=== PATIENT | male | born 1945 | race Caucasian/White ===

== ENCOUNTER 2019-01-06 16:45 | Inpatient (IN) | payer MEDICARE, OTHER ==
[~2019-01-06] VITALS: Ht 177.8 cm; Wt 117.5 kg
[~2019-01-06 16:45] MED LIST: ACET325T9 PO; ALBU0.63 NEB; ALBU2.5V8 IH; ASPI-482 PO; ATOR40TA PO; BUDE10.2 IH; CALC0.2530 PO; CALC500T PO; CAPS42.52 TP; CARB15DR3 LEFTEYE; CARV6.2541 PO; CETI10TA16 PO; CHOL2000 PO; CITA40TA12 PO; DOCU-109 PO; FERR325T14 PO; FLUT16SP2 NS; FLUT50DI IH; FOLI1TAB16 PO; FURO40TA4 PO; LEVO50TA5 PO; MIRT45TA58 PO; OXYC1TAB15 PO; OXYM30MI NS; POTA20TA12 PO; PRED20TA PO; RANI150T2 PO; RIVA10TA PO; TIOT18CA IH; [UNRECOGNIZED DRUG - CODE] PO
--- NOTE | 2019-01-06 16:58 | PHYS DOC ---
Past History Past Medical History: Anxiety, CHF, COPD, Depression, Diabetes, GERD, High Cholesterol, Hypothyroid Alcohol Use: None Drug Use: None Adult General Chief Complaint Chief Complaint: SHORTNESS OF BREATH [facility] HPI Patient is a 73-year-old male presents complaining of shortness of breath that has been getting worse over the past several days to a week. Became much worse while he was in physical therapy/rehabilitation today. Notes that bilateral lower extremities are swelling compared with his usual baseline. Denies any chest pain. Notes a fast heartbeat and some palpitations. This is also been present for the past week. No nausea or vomiting. No diaphoresis. No worsening cough and his usual baseline. No fever. Patient is on home oxygen therapy at 3 L chronically For COPD.[] Review of Systems Review of Systems Constitutional: Denies fever or chills [] Eyes: Denies change in visual acuity, redness, or eye pain [] HENT: Denies nasal congestion or sore throat [] Respiratory: See history of present illness[] Cardiovascular: No additional information not addressed in HPI [] GI: Denies abdominal pain, nausea, vomiting, bloody stools or diarrhea [] : Denies dysuria or hematuria [] Musculoskeletal: Denies back pain or joint pain [] Integument: Denies rash or skin lesions [] Neurologic: Denies headache, focal weakness or sensory changes [] Endocrine: Denies polyuria or polydipsia [] All other systems were reviewed and found to be within normal limits, except as documented in this note. Allergies Allergies Allergies Coded Allergies Type Severity Reaction Last Updated Verified Penicillins Allergy Intermediate 09/07/14 Yes Physical Exam Physical Exam Constitutional: Well developed, well nourished, mild distress, non-toxic appearance. [] HENT: Normocephalic, atraumatic, bilateral external ears normal, oropharynx moist, no oral exudates, nose normal. [] Eyes: PERRLA, EOMI, conjunctiva normal, no discharge. [] Neck: Normal range of motion, no tenderness, supple, no stridor. [] Cardiovascular:Heart rate is tachycardic with a regular rhythm, no murmur [] Lungs & Thorax: Bilateral breath sounds are diminished[] Abdomen: Bowel sounds normal, soft, no tenderness, no masses, no pulsatile masses. [] Skin: Warm, dry, no erythema, no rash. [] Back: No tenderness, no CVA tenderness. [] Extremities: No tenderness, no cyanosis, no clubbing, ROM intact, 2-3+ pretibial edema. [] Neurologic: Alert and oriented X 3, normal motor function, normal sensory function, no focal deficits noted. [] Psychologic: Affect normal, judgement normal, mood normal. [] EKG EKG EKG shows an irregularly irregular rhythm at 161 bpm, normal axis, QTC of 384 ms , no ST elevations. Interpreted by me at 1708. When compared with EKG of 2013, atrial fibrillation has replaced sinus rhythm.[] Radiology/Procedures Radiology/Procedures PROCEDURE: PORTABLE CHEST 1V PORTABLE CHEST 1V Clinical indications: TACHYCARDIA, SHORT OF AIR COMPARISON: September 10, 2014. Findings: Bibasilar lung infiltrates or pulmonary edema are seen. Bilateral perihilar interstitial pulmonary edema or interstitial lung infiltrates are seen. Small bilateral pleural effusions are seen. No pneumothorax is evident. The heart size is enlarged but stable. Mediastinum is unremarkable. Old healed left rib cage fractures are seen. IMPRESSION: Bibasilar consolidative lung infiltrates and bilateral perihilar interstitial lung infiltrates with small bilateral pleural effusions. Given cardiomegaly, this most likely represents moderate CHF although certainly bilateral bronchitis and bilateral pneumonia is possible if there are clinical findings of such.[] Course & Med Decision Making Course & Med Decision Making Pertinent Labs and Imaging studies reviewed. (See chart for details) ED course: Patient arrived, was placed in bed from the EMS cot, and tolerated exam well. He was noted to be hypoxic on 4 L is cannula oxygen when in a supine position so he was sat up which improved his oxygenation. He was given breathing treatment which improved airflow. He was given diuretics due to concern for congestive heart failure. He was given a diltiazem bolus as well as continuous infusion which brought his heart rate down from the 160s to the 100s to 110s. Consultation was made with hospitalist service for admission. Medical decision making: Patient appears to have congestive heart failure with new onset atrial fibrillation with rapid ventricular response. Patient is on Eliquis which according to his medical record that came from the assisted care facility is for DVTs.[] Dragon Disclaimer Dragon Disclaimer This electronic medical record was generated, in whole or in part, using a voice recognition dictation system. Departure Departure: Impression: Primary Impression: CHF (congestive heart failure) Additional Impressions: Atrial fibrillation with RVR COPD (chronic obstructive pulmonary disease) Disposition: ADMITTED INPATIENT Admitting Physician: Tez Stinson Condition: IMPROVED Referrals: SHELLY MEYER DO (PCP) Problem Qualifiers Primary Impression: CHF (congestive heart failure) Heart failure type: unspecified Heart failure chronicity: unspecified Qualified Codes: I50.9 - Heart failure, unspecified Additional Impressions: COPD (chronic obstructive pulmonary disease) COPD type: unspecified COPD Qualified Codes: J44.9 - Chronic obstructive pulmonary disease, unspecified ANNALEE ARAUZ DO Jan 06, 2019 16:58
[2019-01-06] MEDS ORDERED: dilTIAZem 25 MG/5 ML VIAL IVP ONE (17:15)
--- NOTE | 2019-01-06 17:25 | EKG ---
[address] [address] Test Date: 2019-01-06 Test Time: 17:04:36 Pat Name: JIMY GUPTA Department: Room: Gender: M Box Inspector: [id number] : 1945 Requested By: ANNALEE RAAUZ Order Number: [id number] Reading MD: Tru Vidales Measurements Intervals [place] Rate: 161 P: AR: QRS: 3 QRSD: 92 T: -179 QT: 234 QTc: 384 Interpretive Statements ATRIAL FIBRILLATION WITH RVR QRS(T) CONTOUR ABNORMALITY CONSISTENT WITH INFERIOR INFARCT PROBABLY OLD ST & T ABNORMALITY, CONSIDER HIGH LATERAL ISCHEMIA OR LEFT VENTRICULAR STRAIN T ABNORMALITY IN LATERAL LEADS ABNORMAL ECG Electronically Signed On 01-11-2019 8:28:13 CDT by Tru Vidales
--- NOTE | 2019-01-06 17:26 | RAD ---
PORTABLE CHEST 1V Clinical indications: TACHYCARDIA, SHORT OF AIR COMPARISON: September 10, 2014. Findings: Bibasilar lung infiltrates or pulmonary edema are seen. Bilateral perihilar interstitial pulmonary edema or interstitial lung infiltrates are seen. Small bilateral pleural effusions are seen. No pneumothorax is evident. The heart size is enlarged but stable. Mediastinum is unremarkable. Old healed left rib cage fractures are seen. IMPRESSION: Bibasilar consolidative lung infiltrates and bilateral perihilar interstitial lung infiltrates with small bilateral pleural effusions. Given cardiomegaly, this most likely represents moderate CHF although certainly bilateral bronchitis and bilateral pneumonia is possible if there are clinical findings of such. Electronically signed by: Santiago Montejo MD (01/06/2019 5:23 PM) [id number]
[2019-01-06] MEDS ORDERED: ASPIRIN 81 MG TAB.CHEW PO ONE (17:30)
[2019-01-06] MEDS ORDERED: dilTIAZem VIAL 125 MG in IV DEXTROSE 5% 100 ML IV ONE (17:30)
[2019-01-06] MEDS ORDERED: IPRATRPIUM/ALBUTEROL 0.5/2.5MG 3 ML NEBU. NEB ONE (17:30)
[2019-01-06] MEDS ORDERED: FUROSEMIDE 40 MG/4 ML VIAL IVP ONE (17:30)
[2019-01-06 17:35] LABS: BASO % 0 % (0-3); EOS % 0 % (0-3); HEMATOCRIT 42.2 % (39.0-53.0); HEMOGLOBIN 13.4 g/dL (13.0-17.5); LYMPH # 0.2 x10^3/uL (1.0-4.8); LYMPH % 2 % (24-48); MEAN CORPUSCULAR HEMOGLOBIN 31 pg (25-35); MEAN CORPUSCULAR HGB CONC 32 g/dL (31-37); MEAN CORPUSCULAR VOLUME 98 fL (79-100); MONO # 0.2 x10^3/uL (0.0-1.1); MONO % 2 % (0-9); NEUT # 8.6 x10^3uL (1.8-7.7); NEUT % 96 % (31-73); PLATELET COUNT 139 x10^3/uL (140-400); RED BLOOD COUNT 4.31 x10^6/uL (4.30-5.70)
[2019-01-06] MEDS ORDERED: busPIRone 5 MG TABLET. PO ONE (17:45)
[2019-01-06 17:56] LABS: ALBUMIN 3.5 g/dL (3.4-5.0); ALBUMIN/GLOBULIN RATIO 1.3 (1.0-1.7); CALCIUM 8.2 mg/dL (8.5-10.1); CREATININE 2.9 mg/dL (0.7-1.3); GFR 21.3; MAGNESIUM 2.2 mg/dL (1.8-2.4); TOTAL BILIRUBIN 0.5 mg/dL (0.2-1.0); TOTAL PROTEIN 6.3 g/dL (6.4-8.2)
[2019-01-06] MEDS ORDERED: MORPHINE SULFATE 2 MG/ML DISP.SYRIN. IV PRN (18:30)
[2019-01-06] MEDS ORDERED: ONDANSETRON PF 4 MG/2 ML VIAL. IV PRN (18:30)
[2019-01-06] MEDS ORDERED: MORPHINE SULFATE 4 MG/ML DISP.SYRIN. IV PRN (18:33)
[2019-01-06 18:50] VITALS: BP 136/80
[2019-01-06 19:40] VITALS: BP 152/75
[2019-01-06 20:07] LABS: BACTERIA,URINE FEW /HPF (0-FEW); BILIRUBIN,URINE NEG (NEG); CLARITY,URINE CLEAR; COLOR,URINE YELLOW; GLUCOSE,URINE 250 mg/dL (NEG); NITRITE,URINE NEG (NEG); RBC,URINE 0 /HPF (0-2); SQUAMOUS EPITHELIAL CELL,UR FEW /LPF; UROBILINOGEN,URINE 0.2 mg/dL (0.2 mg/dL); WBC,URINE 0 /HPF (0-4)
[2019-01-06] MEDS ORDERED: SENN1TAB62 PO (20:19)
[2019-01-06 20:40] VITALS: BP 149/85
[2019-01-06] MEDS ORDERED: FURO20TA3 PO (20:52)
[2019-01-06] MEDS ORDERED: TRAZ-120 PO (20:52)
[2019-01-06] MEDS ORDERED: PANT40TA3 PO (20:52)
[2019-01-06] MEDS ORDERED: BUDE10.2 IH (20:52)
[2019-01-06] MEDS ORDERED: APIX2.5T PO (20:52)
[2019-01-06] MEDS ORDERED: POTA20TA4 PO (20:52)
[2019-01-06] MEDS ORDERED: DULO60CA6 PO (20:52)
[2019-01-06] MEDS ORDERED: MELA3TAB2 PO (20:52)
[2019-01-06] MEDS ORDERED: GLIP5TAB10 PO (20:52)
[2019-01-06] MEDS ORDERED: FLUT16SP21 NS (20:52)
[2019-01-06] MEDS ORDERED: NYST15PO9 TP (20:52)
[2019-01-06] MEDS ORDERED: ALBU2.5V5 NEB (20:52)
[2019-01-06] MEDS ORDERED: LACT1CAP2 PO (20:52)
[2019-01-06] MEDS ORDERED: BUSP10TA PO (20:52)
[2019-01-06] MEDS ORDERED: LEVO750T5 PO (20:52)
[2019-01-06 21:40] VITALS: BP 170/83
[2019-01-06] MEDS ORDERED: DEXTROSE 50% 25 GM / 50ML DISP.SYRIN. IV PRN ×2 (21:45)
[2019-01-06] MEDS: VANCOMYCIN PER PHARMACY MC PRN (22:33)
[2019-01-06 22:40] VITALS: BP 139/73
[2019-01-06] MEDS: busPIRone 10 MG TABLET. PO SCH (22:40)
[2019-01-06] MEDS: MELATONIN 3 MG TABLET PO SCH (22:40)
[2019-01-06] MEDS: APIXABAN 2.5 MG TABLET PO SCH (22:41)
[2019-01-06] MEDS: ATORVASTATIN CALCIUM 20 MG TABLET PO SCH (22:41)
[2019-01-06] MEDS: traZODone 50 MG TABLET. PO SCH (22:41)
[2019-01-06] MEDS: MEROPENEM 1 GM in IV NORMAL SALINE 100ML 100 ML IV SCH (22:42)
[2019-01-06] MEDS ORDERED: DIGOXIN IV 500 MCG/2 ML AMPUL. IV ONE (22:44)
[2019-01-06] MEDS ORDERED: VANCOMYCIN 2 GM in IV NORMAL SALINE 500ML 500 ML IV ONE (23:00)
[2019-01-06 23:40] VITALS: BP 109/79
[2019-01-07] VITALS (18 sets, daily range): BP systolic 107–161; BP diastolic 52–81
[2019-01-07] MEDS: dilTIAZem VIAL 125 MG in IV DEXTROSE 5% 100 ML IV PRN ×3 (00:24→22:14)
[2019-01-07] MEDS: ACETAMINOPHEN 500 MG TABLET PO PRN (01:07)
[2019-01-07] MEDS ORDERED: IPRATRPIUM/ALBUTEROL 0.5/2.5MG 3 ML NEBU. ONE (05:18)
[2019-01-07] MEDS: IPRATRPIUM/ALBUTEROL 0.5/2.5MG 3 ML NEBU. NEB SCH ×4 (05:22→20:06)
[2019-01-07] MEDS: LEVOTHYROXINE 50 MCG TABLET PO SCH (05:30)
[2019-01-07] MEDS: NYSTATIN TOPICAL POWDER 15GM BOTTLE. TP SCH ×3 (05:30→20:24)
[2019-01-07 07:42] LABS: BASO % 0 % (0-3); EOS # 0.1 x10^3/uL (0.0-0.7); EOS % 1 % (0-3); HEMATOCRIT 36.7 % (39.0-53.0); HEMOGLOBIN 11.8 g/dL (13.0-17.5); LYMPH # 0.7 x10^3/uL (1.0-4.8); LYMPH % 10 % (24-48); MEAN CORPUSCULAR HEMOGLOBIN 31 pg (25-35); MEAN CORPUSCULAR HGB CONC 32 g/dL (31-37); MEAN CORPUSCULAR VOLUME 96 fL (79-100); MONO # 0.5 x10^3/uL (0.0-1.1); MONO % 6 % (0-9); NEUT # 6.3 x10^3uL (1.8-7.7); NEUT % 83 % (31-73); PLATELET COUNT 112 x10^3/uL (140-400); RED CELL DISTRIBUTION WIDTH 14.2 % (11.5-14.5); WHITE BLOOD COUNT 7.6 x10^3/uL (4.0-11.0)
[2019-01-07] MEDS: glipiZIDE 5 MG TABLET PO SCH ×2 (07:55→16:44)
[2019-01-07 07:59] LABS: ALBUMIN 2.9 g/dL (3.4-5.0); ALBUMIN/GLOBULIN RATIO 1.1 (1.0-1.7); CALCIUM 7.8 mg/dL (8.5-10.1); CREATININE 2.5 mg/dL (0.7-1.3); GFR 25.3; POTASSIUM 4.3 mmol/L (3.5-5.1); TOTAL BILIRUBIN 0.6 mg/dL (0.2-1.0); TOTAL PROTEIN 5.5 g/dL (6.4-8.2)
[2019-01-07] MEDS: INSULIN LISPRO 300 UNITS/3 ML INSULN.PEN. SQ SCH ×3 (08:00→17:07)
[2019-01-07] MEDS ORDERED: IPRATRPIUM/ALBUTEROL 0.5/2.5MG 3 ML NEBU. NEB SCH (08:00)
[2019-01-07] MEDS: APIXABAN 2.5 MG TABLET PO SCH ×2 (08:04→20:23)
[2019-01-07] MEDS: DULoxetine HCL 60 MG CAPSULE.DR PO SCH (08:04)
[2019-01-07] MEDS: PANTOPRAZOLE 40 MG TABLET. PO SCH (08:05)
[2019-01-07] MEDS: LACTOBACILLUS RHAMNOSUS GG 1 CAPSULE. PO SCH ×2 (08:05→20:24)
[2019-01-07] MEDS: CHOLECALCIFEROL (VITAMIN D3) 1,000 UNIT TABLET PO SCH (08:05)
[2019-01-07] MEDS: FOLIC ACID 1 MG TABLET PO SCH (08:05)
[2019-01-07] MEDS: FLUTICASONE 50MCG/NASAL SPRAY 16GM BOTTLE. NS SCH (08:06)
[2019-01-07] MEDS: FUROSEMIDE 20 MG TABLET PO SCH (08:06)
[2019-01-07] MEDS: busPIRone 10 MG TABLET. PO SCH ×2 (08:06→20:24)
[2019-01-07] MEDS: CALCITRIOL 0.25 MCG CAPSULE PO SCH (08:07)
[2019-01-07] MEDS ORDERED: NON FORMULARY ITEM (Tiotropium Bromide (Spiriva) 18 MCG) IH SCH (09:00)
[2019-01-07] MEDS ORDERED: NON FORMULARY ITEM (Budesonide/Formoterol Fumarate (Symbicort 160-4.5 Mcg Inhaler) 2 PUFF) IH SCH (09:00)
[2019-01-07] MEDS: MEROPENEM 1 GM in IV NORMAL SALINE 100ML 100 ML IV SCH ×2 (09:42→21:56)
[2019-01-07] MEDS: BUDESONIDE 0.5 MG/2 ML NEBU NEB SCH ×2 (09:46→20:06)
--- NOTE | 2019-01-07 10:27 | PDOC2 ---
CONSULT Date of Admission DATE: 01/07/19 TIME: 10:24 Problem List Problems Medical Problems: (1) Atrial fibrillation with RVR Status: Acute (2) CHF (congestive heart failure) Status: Acute (3) COPD (chronic obstructive pulmonary disease) Status: Acute History of Present Illness Mr Muniz is a 73 year old male who normally receives [facility] care at the [facility], who was admitted to the hospital with complaints of increasing dyspnea and edema. He was apparently undergoing physical therapy when his breathing became worse so he was transported to the ED. He denies chest pain, orthopnea or PND. He reports increased dyspnea with exertion and increased swelling. He was noted in the ED to be in atrial fibrillation with RVR so started on cardizem and consult called. He denies any palpitations or prior known history of atrial fibrillation. He denies lightheadedness, presyncope or syncope. Past Medical History type 2 diabetes mellitus, hypertension, hyperlipidemia, coronary artery disease , status post myocardial infarction, diastolic heart failure, DVT, PEx2, hypothyroidism, CKD, BPH, COPD with home oxygen, HARISH, chronic back pain with multiple compression fractures. additional history pneumonia and gross hematuria Echo 2013 This is a technically difficult study due to poor image quality. Definity contrast was used to enhance image quality. The left ventricle is normal size. There is normal left ventricular wall thickness. Unable to assess regional wall motion due to poor image quality. Left ventricle systolic function is normal.The estimated ejection fraction is 55 -60%. Transmitral Doppler flow pattern is Grade I - abnormal relaxation pattern. There is mild aortic valve sclerosis. Unable to estimate pulmonary artery pressure. Past Surgical History bilateral cataract extraction, loop implantation and removal Family History father with VT in his 40s Social History prior smoker, quit 1995, history of daily shot of vodka, denies illicit drugs Current Medications Current Medications Albuterol/ Ipratropium (Duoneb) 3 ml 1X ONCE NEB Last administered on at 17:04; Start 01/06/19 at 17:30; Stop 01/06/19 at 17:31; Status DC Furosemide (Lasix) 40 mg 1X ONCE IVP Last administered on 01/06/19at 17:19; Start 01/06/19 at 17:30; Stop 01/06/19 at 17:31; Status DC Aspirin (Children'S Aspirin) 324 mg 1X ONCE PO Last administered on 01/06/19at 17:04; Start 01/06/19 at 17:30; Stop 01/06/19 at 17:31; Status DC Diltiazem HCl (Cardizem Iv Push) 20 mg 1X ONCE IVP Last administered on at 17:21; Start 01/06/19 at 17:15; Stop 01/06/19 at 17:16; Status DC Diltiazem HCl 125 mg/Dextrose 125 ml @ 10 mls/hr 1X ONCE IV Last administered on 01/06/19at 17:27; Start 01/06/19 at 17:30; Stop 01/07/19 at 06:00 ; Status DC Buspirone HCl (Buspar) 10 mg 1X ONCE PO Last administered on 01/06/19at 17:48; Start 01/06/19 at 17:45; Stop 01/06/19 at 17:46; Status DC Ondansetron HCl (Zofran) 4 mg PRN Q4HRS PRN IV NAUSEA/VOMITING; Start 01/06/19 at 18:30; Stop 01/07/19 at 18:29 Morphine Sulfate (Morphine 2mg Syringe) 2 mg PRN Q2HR PRN IV PAIN; Start at 18:30; Stop 01/06/19 at 18:33; Status DC Morphine Sulfate (Morphine 4mg Syringe) 2 mg PRN Q2HR PRN IV PAIN; Start at 18:33; Stop 01/07/19 at 18:29 Apixaban (Eliquis) 2.5 mg BID PO Last administered on 01/07/19at 08:04; Start at 22:00 Furosemide (Lasix) 60 mg DAILY PO ; Start 01/07/19 at 09:00 Guaifenesin (Guaifenesin) 200 mg PRN TID PRN PO COUGH Last administered on 01/07 08:07; Start 01/06/19 at 21:30 Nystatin (Nystop) 1 sirena BID TP Last administered on 01/07/19at 05:30; Start at 22:00 Senna/Docusate Sodium (Senna Plus) 2 tab PRN BID PRN PO CONSTIPATION; Start at 21:30 Atorvastatin Calcium (Lipitor) 40 mg QHS PO Last administered on 01/06/19 22: 41; Start 01/06/19 at 22:00 Non-Formulary Medication (Budesonide/ Formoterol Fumarate (Symbicort 160-4.5 Mcg Inhaler)) 2 puff BID IH ; Start 01/07/19 at 09:00; Status UNV Buspirone HCl (Buspar) 10 mg BID PO Last administered on 01/07/19 08:06; Start 01/06/19 at 22:00 Calcitriol (Rocaltrol) 0.25 mcg 3X/WEEK PO Last administered on 01/07/19 08:07 ; Start 01/07/19 at 09:00 Vitamin D (Vitamin D3) 2,000 unit DAILY PO Last administered on 01/07/19 08:05 ; Start 01/07/19 at 09:00 Duloxetine HCl (Cymbalta) 60 mg DAILY PO Last administered on 01/07/19 08:04; Start 01/07/19 at 09:00 Fluticasone Propionate (Flonase) 2 spray DAILY NS Last administered on 08:06; Start 01/07/19 at 09:00 Folic Acid (Folic Acid) 1 mg DAILY PO Last administered on 01/07/19 08:05; Start 01/07/19 at 09:00 Glipizide (Glucotrol) 2.5 mg BIDBFRMEAL PO Last administered on 01/07/19 07:55 ; Start 01/07/19 at 07:30 Lactobacillus Rhamnosus (Culturelle) 1 cap BID PO Last administered on 08:05; Start 01/07/19 at 09:00 Levothyroxine Sodium (Synthroid) 50 mcg DAILY06 PO Last administered on 05:30; Start 01/07/19 at 06:00 Melatonin 3 mg HS PO Last administered on 01/06/19 22:40; Start 01/06/19 at 22 :00 Pantoprazole Sodium (Protonix) 40 mg DAILY PO Last administered on 01/07/19 08 :05; Start 01/07/19 at 09:00 Non-Formulary Medication (Tiotropium [place] (Spiriva)) 18 mcg DAILY IH ; Start 01/07/19 at 09:00; Status UNV Trazodone HCl (Desyrel) 50 mg HS PO Last administered on 01/06/19at 22:41; Start 01/06/19 at 22:00 Albuterol/ Ipratropium (Duoneb) 3 ml RTQID NEB Last administered on 01/07/19at 09:46; Start 01/07/19 at 08:00 Insulin Human Lispro (HumaLOG) 0-5 UNITS TIDWMEALS SQ ; Start 01/07/19 at 08:00 Dextrose (Dextrose 50%-Water Syringe) 12.5 gm PRN Q15MIN PRN IV SEE COMMENTS; Start 01/06/19 at 21:45 Dextrose (Dextrose 50%-Water Syringe) 12.5 gm PRN Q15MIN PRN IV SEE COMMENTS; Start 01/06/19 at 21:45; Status UNV Vancomycin HCl (Vanco Per Pharmacy) 1 each PRN DAILY PRN MC SEE COMMENTS Last administered on 01/06/19at 22:33; Start 01/06/19 at 21:45 Albuterol/ Ipratropium (Duoneb) 3 ml RTQID NEB ; Start 01/07/19 at 08:00; Status UNV Budesonide (Pulmicort) 0.5 mg RTBID NEB Last administered on 01/07/19 09:46; Start 01/07/19 at 08:00 Meropenem 1 gm/ Sodium Chloride 100 ml @ 200 mls/hr Q12H IV Last administered on 01/07/19 09:42; Start 01/06/19 at 22:00 Vancomycin HCl 2 gm/Sodium Chloride 500 ml @ 250 mls/hr 1X ONCE IV Last administered on 01/06/19at 23:30; Start 01/06/19 at 23:00; Stop 01/07/19 at 01:00 ; Status DC Vancomycin HCl 1.75 gm/Sodium Chloride 500 ml @ 250 mls/hr Q24H IV ; Start at 23:00 Vancomycin HCl (Vancomycin Trough Level) 1 each 1X ONCE MC ; Start 01/08/19 at 22:30; Stop 01/08/19 at 22:31 Diltiazem HCl 125 mg/Dextrose 125 ml @ 5 mls/hr CONT PRN IV SEE I/O RECORD Last administered on 01/07/19at 09:28; Start 01/06/19 at 22:30 Digoxin (Lanoxin) 500 mcg 1X ONCE IV Last administered on 01/06/19at 22:45; Start 01/06/19 at 22:44; Stop 01/06/19 at 22:45; Status DC Acetaminophen (Tylenol) 1,000 mg PRN Q6HRS PRN PO PAIN / TEMP Last administered on 01/07/19at 01:07; Start 01/07/19 at 01:00 Albuterol/ Ipratropium (Duoneb) 3 ml STK-MED ONCE .ROUTE ; Start 01/07/19 at 05: 18; Stop 01/07/19 at 05:19; Status DC Active Scripts Active Reported Melatonin 3 Mg Tablet 3 Mg PO HS Acidophilus (Lactobacillus Acidophilus) 1 Each Capsule 1 Each PO BID Levofloxacin 750 Mg Tablet 750 Mg PO DAILY 8 Days Klor-Con M20 (Potassium Chloride) 20 Meq Tab.er.prt 20 Meq PO DAILY Glipizide 5 Mg Tablet 2.5 Mg PO BID Symbicort 160-4.5 Mcg Inhaler (Budesonide/Formoterol Fumarate) 10.2 Gm Hfa.aer.ad 2 Puff IH BID Fluticasone Propionate Nasal Dendron (Fluticasone Propionate) 16 Gm Dendron.susp 2 Spr NS DAILY Eliquis (Apixaban) 2.5 Mg Tablet 2.5 Mg PO BID Albuterol Sulfate Neb Soln (Albuterol Sulfate) 2.5 Mg/3 Ml Vial.neb 2.5 Mg NEB QID Nystatin 15 Gm Powder 1 Sirena TP BID Buspirone Hcl 10 Mg Tablet 1 Tab PO BID Trazodone Hcl 50 Mg Tablet 1 Tab PO QHS Cymbalta (Duloxetine Hcl) 60 Mg Capsule.dr 1 Cap PO DAILY Furosemide 20 Mg Tablet 60 Mg PO DAILY Protonix (Pantoprazole Sodium) 40 Mg Tablet.dr 20 Mg PO DAILY Senna Plus Tablet (Sennosides/Docusate Sodium) 1 Each Tablet 2 Each PO PRN BID PRN Spiriva (Tiotropium [place]) 18 Mcg Cap.w.dev 18 Mcg IH DAILY Last Dose: Not given in hospital Next Dose: Resume at home Indication: COPD Lipitor (Atorvastatin Calcium) 40 Mg Tablet 40 Mg PO QHS Last Dose: 09-10-14 at 9:00 PM Next Dose: Tonight at 9:00 PM Indication: Cholesterol Folic Acid 1 Mg Tablet 1 Mg PO DAILY Last Dose: Today at 0900 Next Dose: Tomorrow at 0900 Indication: Supplement Tylenol (Acetaminophen) 325 Mg Tablet 1-2 Tab PO PRN Q8HRS PRN Not given in hospital Levothyroxine Sodium 50 Mcg Tablet 50 Mcg PO DAILYAC Last Dose: Today at 0730 Next Dose: Tomorrow at 30 Indication: Thyroid Coughtab (Guaifenesin) 200 Mg Tablet 200 Mg PO PRN TID PRN Last Dose: Not given in hospital Next Dose: Resume at home as needed Indication: Vitamin D (Cholecalciferol (Vitamin D3)) 2,000 Unit Capsule 2,000 Unit PO DAILY Last Dose: Today at 0900 Next Dose: Tomorrow at 00 Indication: Supplement Calcitriol 0.25 Mcg Capsule 0.25 Mcg PO 3X/WEEK Last Dose: Today at 0900 Next Dose: Thursday at 0900 Indication: Calcium supplement Allergies: Coded Allergies: Penicillins (Verified Allergy, Intermediate, 09/07/14) oxycodone (Verified Allergy, Intermediate, 01/07/19) Review of System as per HPI General: Alert, Oriented X3, Cooperative, No acute distress HEENT: Atraumatic, EOMI Lungs: Other (scattered crackles) Heart: Other (irregular rate and rhythm, no gallops clicks or rubs) Abdomen: Normal bowel sounds, Soft, No tenderness Extremities: No cyanosis, Other (2+ edema) Neuro: Normal speech, Strength at 5/5 X4 ext Psych/Mental Status: Mental status NL, Mood NL VITALS Vital Signs Date Time Temp Pulse Resp B/P (MAP) Pulse Ox O2 Delivery O2 Flow Rate FiO2 01/07/19 10:00 98 135/75 (95) 01/07/19 09:46 93 Nasal Cannula 3.0 01/07/19 06:03 97.7 01/07/19 04:56 26 Labs Laboratory Tests Test 01/06/19 16:52 01/06/19 17:10 01/06/19 21:17 01/06/19 21:40 Urine Collection Type Void Urine Color Yellow Urine Clarity Clear Urine pH 5.5 Urine Specific [place] 1.015 Urine Protein Neg (NEG-TRACE) Urine Glucose (UA) 250 mg/dL (NEG) Urine Ketones (Stick) Neg mg/dL (NEG) Urine Blood Neg (NEG) Urine Nitrite Neg (NEG) Urine Bilirubin Neg (NEG) Urine Urobilinogen Dipstick 0.2 mg/dL (0.2 mg/dL) Urine Leukocyte Esterase Neg (NEG) Urine RBC 0 /HPF (0-2) Urine WBC 0 /HPF (0-4) Urine Squamous Epithelial Cells Few /LPF Urine Bacteria Few /HPF (0-FEW) White Blood Count 9.0 x10^3/uL (4.0-11.0) Red Blood Count 4.31 x10^6/uL (4.30-5.70) Hemoglobin 13.4 g/dL (13.0-17.5) Hematocrit 42.2 % (39.0-53.0) Mean Corpuscular Volume 98 fL (79-100) Mean Corpuscular Hemoglobin 31 pg (25-35) Mean Corpuscular Hemoglobin Concent 32 g/dL (31-37) Red Cell Distribution Width 15.0 % (11.5-14.5) Platelet Count 139 x10^3/uL (140-400) Neutrophils (%) (Auto) 96 % (31-73) Lymphocytes (%) (Auto) 2 % (24-48) Monocytes (%) (Auto) 2 % (0-9) Eosinophils (%) (Auto) 0 % (0-3) Basophils (%) (Auto) 0 % (0-3) Neutrophils # (Auto) 8.6 x10^3uL (1.8-7.7) Lymphocytes # (Auto) 0.2 x10^3/uL (1.0-4.8) Monocytes # (Auto) 0.2 x10^3/uL (0.0-1.1) Eosinophils # (Auto) 0.0 x10^3/uL (0.0-0.7) Basophils # (Auto) 0.0 x10^3/uL (0.0-0.2) Prothrombin Time 10.8 SEC (9.4-11.4) Prothromb Time International Ratio 1.1 (0.9-1.1) Activated Partial Thromboplast Time 24 SEC (23-33) Sodium Level 140 mmol/L (136-145) Potassium Level 5.0 mmol/L (3.5-5.1) Chloride Level 100 mmol/L (98-107) Carbon Dioxide Level 30 mmol/L (21-32) Anion Gap 10 (6-14) Blood Urea Nitrogen 51 mg/dL (8-26) Creatinine 2.9 mg/dL (0.7-1.3) Estimated GFR (Cockcroft-Gault) 21.3 BUN/Creatinine Ratio 18 (6-20) Glucose Level 299 mg/dL (70-99) Calcium Level 8.2 mg/dL (8.5-10.1) Magnesium Level 2.2 mg/dL (1.8-2.4) Total Bilirubin 0.5 mg/dL (0.2-1.0) Aspartate Amino Transf (AST/SGOT) 18 U/L (15-37) Alanine Aminotransferase (ALT/SGPT) 36 U/L (16-63) Alkaline Phosphatase 55 U/L (46-116) Troponin I Quantitative 0.040 ng/mL (0-0.055) 0.051 ng/mL (0-0.055) JH-Apb-G-Type Natriuretic Peptide 4322 pg/mL (0-449) Total Protein 6.3 g/dL (6.4-8.2) Albumin 3.5 g/dL (3.4-5.0) Albumin/Globulin Ratio 1.3 (1.0-1.7) Glucose (Fingerstick) 217 mg/dL (70-99) Lactic Acid Level 2.2 mmol/L (0.4-2.0) Test 01/07/19 01:00 01/07/19 07:13 Lactic Acid Level 2.1 mmol/L (0.4-2.0) Troponin I Quantitative 0.057 ng/mL (0-0.055) 0.061 ng/mL (0-0.055) White Blood Count 7.6 x10^3/uL (4.0-11.0) Red Blood Count 3.80 x10^6/uL (4.30-5.70) Hemoglobin 11.8 g/dL (13.0-17.5) Hematocrit 36.7 % (39.0-53.0) Mean Corpuscular Volume 96 fL (79-100) Mean Corpuscular Hemoglobin 31 pg (25-35) Mean Corpuscular Hemoglobin Concent 32 g/dL (31-37) Red Cell Distribution Width 14.2 % (11.5-14.5) Platelet Count 112 x10^3/uL (140-400) Neutrophils (%) (Auto) 83 % (31-73) Lymphocytes (%) (Auto) 10 % (24-48) Monocytes (%) (Auto) 6 % (0-9) Eosinophils (%) (Auto) 1 % (0-3) Basophils (%) (Auto) 0 % (0-3) Neutrophils # (Auto) 6.3 x10^3uL (1.8-7.7) Lymphocytes # (Auto) 0.7 x10^3/uL (1.0-4.8) Monocytes # (Auto) 0.5 x10^3/uL (0.0-1.1) Eosinophils # (Auto) 0.1 x10^3/uL (0.0-0.7) Basophils # (Auto) 0.0 x10^3/uL (0.0-0.2) Sodium Level 142 mmol/L (136-145) Potassium Level 4.3 mmol/L (3.5-5.1) Chloride Level 101 mmol/L (98-107) Carbon Dioxide Level 36 mmol/L (21-32) Anion Gap 5 (6-14) Blood Urea Nitrogen 49 mg/dL (8-26) Creatinine 2.5 mg/dL (0.7-1.3) Estimated GFR (Cockcroft-Gault) 25.3 BUN/Creatinine Ratio 20 (6-20) Glucose Level 139 mg/dL (70-99) Calcium Level 7.8 mg/dL (8.5-10.1) Total Bilirubin 0.6 mg/dL (0.2-1.0) Aspartate Amino Transf (AST/SGOT) 15 U/L (15-37) Alanine Aminotransferase (ALT/SGPT) 25 U/L (16-63) Alkaline Phosphatase 41 U/L (46-116) Total Protein 5.5 g/dL (6.4-8.2) Albumin 2.9 g/dL (3.4-5.0) Albumin/Globulin Ratio 1.1 (1.0-1.7) Images CXR - IMPRESSION: Bibasilar consolidative lung infiltrates and bilateral perihilar interstitial lung infiltrates with small bilateral pleural effusions. Given cardiomegaly, this most likely represents moderate CHF although certainly bilateral bronchitis and bilateral pneumonia is possible if there are clinical findings of such. Assessment/Plan 1. atrail fibrillation with rvr - rate control improving on cardizem. 2. CAD with prior VT - request records. 3. chronic respiratory insufficiency - multifactorial with chronic diastolic heart failure and COPD (oxygen dependant) 4. Hypertension 5. Acute on chronic kidney disease - (baseline Cr in June 21.6) 6. Hx of recurrent PE/DVT 7. diabetes mellitus 8. hyperlipidemia Check echo, request records from [facility]. continue rate control. On Eliquis for PE and stroke prophylaxis. . JACOB CHAPPELL CLEARANCE REP Jan 07, 2019 10:27
--- NOTE | 2019-01-07 16:16 | HP ---
ADMIT DATE: 01/06/2019 HISTORY OF PRESENT ILLNESS: The patient is a 73-year-old male patient, a resident at [facility], who was brought to the Emergency Room with a complaint of shortness of breath that has been getting worse over the last several days. It became much more worse while he was on physical therapy rehabilitation. Today, he notes that his bilateral lower extremities are swollen compared to his usual baseline. Denied any chest pain. His heart rate was noted to be fast. Apparently, he has this feeling of palpitations for the past week according to him. He has denied any nausea, vomiting. No diaphoresis, no worsening cough from his usual baseline. Denied any chills, rigors or fever. He is normally on 3 liters of oxygen, maintaining his oxygen saturation at 92%, but yesterday while exercising, his oxygen saturation dropped down to less than 85. According to him, he felt weak and they took him off from their stationary bike to a wheelchair and wheeled him back to his room, and as he continued to have tachycardia and shortness of breath, he was brought to the Emergency Room where he was found to be in atrial fibrillation with rapid ventricular response, was given a bolus of Cardizem and was admitted to ICU to continue on Cardizem drip. PAST MEDICAL HISTORY: Significant for type 2 diabetes mellitus, hypertension, hyperlipidemia, coronary artery disease, status post myocardial infarction. He has history of DVT and pulmonary emboli x 2, hypothyroidism, chronic kidney disease, benign prostatic hypertrophy, chronic obstructive pulmonary disease, morbid obesity, obstructive sleep apnea and also chronic back pain. He was admitted before to [facility] multiple times for gross hematuria, although apparently underwent cystoscopy that was unrevealing. PAST SURGICAL HISTORY: Significant for bilateral cataract extraction, has also loop monitor placed and removed about 3-4 years ago and underwent esophagogastroduodenoscopy, colonoscopy as well as cystoscopy. ALLERGIES: He is allergic to PENICILLIN. MEDICATIONS: He is currently on following medications: He was on levofloxacin 750 mg every other day. He is on Spiriva HandiHaler 1 inhalation once a day, albuterol sulfate 2.5 mg in 3 mL by nebulizer 4 times a day, apixaban 2.5 mg twice a day, atorvastatin calcium 40 mg at bedtime, Tylenol 650 mg every 8 hours, Cymbalta 60 mg capsule daily, trazodone 50 mg at bedtime, buspirone 10 mg twice a day, potassium chloride 20 mEq once a day, furosemide 60 mg p.o. daily. He is on Symbicort 160/4.5 mcg 2 puffs twice a day, Mucinex 200 mg 3 times a day, Flonase 2 sprays to each nostril once a day, lactobacillus acidophilus 1 capsule twice a day, Senna-S 2 tablets twice a day, Protonix 40 mg once a day, glipizide 2.5 mg twice a day, levothyroxine sodium 50 mcg once a day, nystatin powder applied topically twice a day, folic acid 1 mg once a day, calcitriol 0.25 mcg p.o. 3 times a week and cholecalciferol for vitamin D3 2000 international units once a day. FAMILY HISTORY: He has one brother younger and lives with him. . He has two sisters, both younger, one of them has multiple medical problems, the younger sister is healthy. His father at the age of 47 because of myocardial infarction. His mother at age of 85, the cause of is not clear to him. SOCIAL HISTORY: He is , has 2 daughters, one of them lives in [place]. He has a son who lives in [place] and one son because of alcoholism. He is an ex-smoker, quit in 1995. He drinks a shot of vodka every day. 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 REVIEW OF SYSTEMS: The patient has had bilateral cataract extraction, but denied any glaucoma or macular degeneration. He has bilateral hearing aid. He denied any stuffy nose, nosebleed or postnasal drip. Denied any sore throat, sore tongue, toothache, hoarseness of voice or difficulty swallowing. Denied any nausea, vomiting, diarrhea or constipation. Denied any hematemesis, melena or hematochezia. Denied any dysuria, frequency or hematuria. Denied any chest pain. Did complain of shortness of breath and orthopnea, but denied any paroxysmal nocturnal dyspnea. Denied any cough, phlegm or hemoptysis. Denied any chills, rigors or fever. PHYSICAL EXAMINATION: GENERAL: When he arrived to the Emergency Room, his heart rate on arrival was 165, blood pressure was 155/103, temperature was 98.1, respiratory rate 20, and oxygen saturation was 92% on 3 liters of oxygen. HEAD, EYES, EARS, NOSE, AND THROAT: Showed normocephalic, atraumatic. NECK: Supple. HEART: Showed normal first and second heart sounds. No gallop, rub or murmur. CHEST: Clear to auscultation. No crepitation or rhonchi. ABDOMEN: Distended, soft, nontender. NEUROLOGIC: He is hard of hearing, but otherwise all cranial nerves are intact. He moves extremities without difficulty, ambulates with a walker. LABORATORY DATA: His lab work on arrival showed that his serum sodium 140, potassium 5, chloride 100, bicarbonate 30, anion gap of 10, BUN 51, creatinine 2.9, estimated GFR was 21 mL per minute. His glucose was 199. His calcium was 8.2, magnesium 2.2. Total bilirubin, AST, ALT, alkaline phosphatase were normal. His total protein was 6.3, albumin was 3.5. Beta natriuretic peptide was 4322. His white cell count was 9000, hemoglobin 13.4, hematocrit 42, MCV 98 and platelet count of 139,000 with normal manual differential. His prothrombin time was 10.8, INR was 1.1, aPTT was 24. His urinalysis was essentially unremarkable. The urine was negative for nitrite, leukocyte esterase, no rbc's, no wbc's, and no bacteria. His nasal screen for MRSA PCR was negative. His chest x-ray showed the patient has basilar consolidative lung infiltrates and bilateral perihilar interstitial lung infiltrate with small bilateral pleural effusion. Given cardiomegaly, this most likely represents moderate congestive heart failure. Certainly bilateral bronchitis and bilateral pneumonia is possible if they are clinical finding of each. SUMMARY: This is a 73-year-old male patient who was admitted with new onset atrial fibrillation with rapid ventricular response who also has what seems to be congestive heart failure and chronic obstructive pulmonary disease. He was given loading dose of Cardizem, continue the Cardizem drip and also 500 mcg of IV digoxin. We will continue with the Cardizem drip. We will do 2 more sets of cardiac enzyme to rule out myocardial infarction and consult the cardiology team to assist with his management. AHMED M. EMERY, MD DR: JUANITA/tico JOB#: [id number] / [id number]
[2019-01-07] MEDS ORDERED: FUROSEMIDE 40 MG/4 ML VIAL IVP ONE (20:00)
[2019-01-07] MEDS: traZODone 50 MG TABLET. PO SCH (20:23)
[2019-01-07] MEDS: ATORVASTATIN CALCIUM 20 MG TABLET PO SCH (20:24)
[2019-01-07] MEDS: MELATONIN 3 MG TABLET PO SCH (20:24)
--- NOTE | 2019-01-07 22:34 | PN ---
DATE: 01/07/2019 SUBJECTIVE: The patient is sitting comfortably in his recliner, in no apparent respiratory distress. On questioning him, he denied any complaint, in particular denied any shortness of breath, chest pain, cough, phlegm or hemoptysis. He continued to be on a Cardizem drip and did receive 500 mcg of digoxin last night. PHYSICAL EXAMINATION: GENERAL: When I examined him this afternoon, he looked well and was clearly in no apparent respiratory distress. No pallor, jaundice, cyanosis, or thyromegaly. No jugular venous distention. Mild bilateral lower limb edema. VITAL SIGNS: His heart rate was 98, blood pressure 135/75, temperature was 97.7, respiratory rate was 18 and oxygen saturation was 93% on 3 liters of oxygen by nasal cannula. HEAD, EYES, EARS, NOSE AND THROAT: Showed normocephalic, atraumatic. NECK: Supple. HEART: Showed normal first and second heart sounds. No gallop, rub or murmur. CHEST: Clear to auscultation. No crepitation or rhonchi. ABDOMEN: Distended, soft, nontender. No guarding or rigidity. No organomegaly. All hernial orifice intact. Bowel sounds normal. NEUROLOGIC: He is awake, alert, responding appropriately. Cranial nerves intact. He moves extremities without difficulty, ambulates with a walker. His intake over the last 24 hours was 1475 and output was 575. LABORATORY DATA: His lab work this morning showed a white cell count 7600, hemoglobin 12, hematocrit 36, MCV 96, and platelet count 212,000. His serum sodium was 142, potassium 4.3, chloride 101, bicarbonate 36, anion gap of 5, BUN 49, creatinine 2.5, estimated GFR was 25 mL per minute, his glucose was 139, calcium was 7.8. Total bilirubin, AST, ALT, alkaline phosphatase were normal. His total protein was 5.5, albumin was 2.9. His TSH was 0.749. ASSESSMENT: His chest x-ray showed he has bibasilar consolidative lung infiltrate and bilateral perihilar interstitial lung infiltrates with small bilateral pleural effusions. Given cardiomegaly, this most likely represents moderate congestive heart failure, certainly bilateral bronchitis and bilateral pneumonia is possible if there are clinical findings of such. PLAN: To continue with his current plan and management as he continued to be on Cardizem drip. I also continued with his IV antibiotic that switched to meropenem and vancomycin given that there is a possibility of healthcare-associated pneumonia in the differential diagnosis of the report and his chest x-ray and he was actually on Levaquin prior to his arrival to the Emergency Room and await the evaluation by the Cardiology Team. LUCIANO LAND MD DR: JUANITA/tico JOB#: [id number] / [id number]
[2019-01-07] MEDS: VANCOMYCIN 1.75 GM in IV NORMAL SALINE 500ML 500 ML IV SCH (22:54)
[2019-01-08] VITALS (23 sets, daily range): BP systolic 110–180; BP diastolic 60–110
[2019-01-08] MEDS: LEVOTHYROXINE 50 MCG TABLET PO SCH (06:00)
[2019-01-08] MEDS: IPRATRPIUM/ALBUTEROL 0.5/2.5MG 3 ML NEBU. NEB SCH ×4 (08:00→20:04)
[2019-01-08] MEDS: INSULIN LISPRO 300 UNITS/3 ML INSULN.PEN. SQ SCH ×3 (08:00→18:12)
[2019-01-08] MEDS: busPIRone 10 MG TABLET. PO SCH ×2 (08:51→19:59)
[2019-01-08] MEDS: FLUTICASONE 50MCG/NASAL SPRAY 16GM BOTTLE. NS SCH (08:51)
[2019-01-08] MEDS: CHOLECALCIFEROL (VITAMIN D3) 1,000 UNIT TABLET PO SCH (08:51)
[2019-01-08] MEDS: glipiZIDE 5 MG TABLET PO SCH ×2 (08:51→17:13)
[2019-01-08] MEDS: FUROSEMIDE 20 MG TABLET PO SCH (08:52)
[2019-01-08] MEDS: DULoxetine HCL 60 MG CAPSULE.DR PO SCH (08:52)
[2019-01-08] MEDS: APIXABAN 2.5 MG TABLET PO SCH ×2 (08:52→19:59)
[2019-01-08] MEDS: LACTOBACILLUS RHAMNOSUS GG 1 CAPSULE. PO SCH ×2 (08:52→19:59)
[2019-01-08] MEDS: PANTOPRAZOLE 40 MG TABLET. PO SCH (08:52)
[2019-01-08] MEDS: FOLIC ACID 1 MG TABLET PO SCH (08:52)
[2019-01-08] MEDS: MEROPENEM 1 GM in IV NORMAL SALINE 100ML 100 ML IV SCH ×2 (08:55→21:36)
[2019-01-08] MEDS: dilTIAZem VIAL 125 MG in IV DEXTROSE 5% 100 ML IV PRN ×2 (08:58→18:11)
[2019-01-08] MEDS: NYSTATIN TOPICAL POWDER 15GM BOTTLE. TP SCH ×2 (09:00→19:59)
[2019-01-08 11:33] LABS: CALCIUM 8.2 mg/dL (8.5-10.1); CREATININE 2.4 mg/dL (0.7-1.3); GFR 26.5; POTASSIUM 4.2 mmol/L (3.5-5.1)
[2019-01-08 11:34] LABS: HEMATOCRIT 41.3 % (39.0-53.0); HEMOGLOBIN 13.4 g/dL (13.0-17.5); RED BLOOD COUNT 4.29 x10^6/uL (4.30-5.70); RED CELL DISTRIBUTION WIDTH 14.5 % (11.5-14.5); WHITE BLOOD COUNT 9.5 x10^3/uL (4.0-11.0)
[2019-01-08] MEDS: BUDESONIDE 0.5 MG/2 ML NEBU NEB SCH ×2 (12:00→20:05)
--- NOTE | 2019-01-08 12:13 | RAD ---
Exam performed: One view chest HISTORY: Worsening shortness of breath. DATE OF SERVICE: 01/08/2019. COMPARISON: None available FINDINGS: Stable cardiomegaly. Increase in central vascular congestion and bilateral perihilar interstitial and airspace opacities. There is increasing airspace opacities and pleural effusion in both lung bases. IMPRESSION: Findings consistent with worsening CHF. Electronically signed by: Niru Armijo MD (01/08/2019 12:10 PM) [facility]
[2019-01-08] MEDS: SENNOSIDES/DOCUSATE 8.6/50MG TABLET. PO PRN (13:07)
--- NOTE | 2019-01-08 14:37 | CARD ---
MR#: [id number] Date of Study: 01/07/2019 Ordering Physician: JACOB CHAPPELL, Referring Physician: LUCIANO LAND Tech: Maureen Beatty ARMANDO APPROVED REPORT EXAM: Two-dimensional and M-mode echocardiogram with Doppler and color Doppler. Other Information Quality : Technically LimitedHR: 95bpm Rhythm : NSRTechnically limited study due to body habitus and smoking. INDICATION CAD 2D DIMENSIONS RVDd3.8 (2.9-3.5cm)Left Atrium(2D)5.5 (1.6-4.0cm) IVSd0.9 (0.7-1.1cm)Aortic Root(2D)3.4 (2.0-3.7cm) LVDd6.7 (3.9-5.9cm)LVOT Diameter2.1 (1.8-2.4cm) PWd1.3 (0.7-1.1cm)LVDs5.9 (2.5-4.0cm) FS (%) 11.1 %SV54.2 ml LVEF(%)23.6 (>50%) M-Mode DIMENSIONS Left Atrium(MM)5.88 (2.5-4.0cm)Aortic Root3.54 (2.2-3.7cm) Aortic Valve AoV Peak Emile.151.6cm/sAoV VTI27.5cm AO Peak GR.9.2mmHgLVOT Peak Emile.93.4cm/s LVOT VTI 16.21cmAO Mean GR.5mmHg AVINASH (VMAX)2.46ni7YXV (VTI)2.13cm2 Mitral Valve MV E Sqonhimk343.5cm/sMV E Peak Gr.73mmHg MV DECEL [id number] A Krnciqvw61.0cm/s MV E Mean Gr.4mmHgE/A Ratio6.4 Pulmonary Valve PV Peak Qthcjjif64.0cm/sPV Peak Grad.4mmHg LEFT VENTRICLE The Left Ventricle is moderately dilated. There is normal left ventricular wall thickness. The ejecti on fraction is severely impaired. The Ejection Fraction is 20-25%. There is global hypokinesis of the left ventricle. Tissue Doppler imaging reveals moderate left ventricular diastolic dysfunction. RIGHT VENTRICLE The right ventricle is mildly dilated. There is normal right ventricular wall thickness. The right ve ntricular systolic function is normal. ATRIA The left atrium is moderately dilated. The right atrium is mildly dilated. The interatrial septum is intact with no evidence for an atrial septal defect or patent foramen ovale as noted on 2-D or Dopple r imaging. AORTIC VALVE The aortic valve is probably trileaflet. The aortic valve is not well visualized. Doppler and Color F low revealed no significant aortic regurgitation. There is no significant aortic valvular stenosis. MITRAL VALVE The mitral valve is thickened but opens well. There is no evidence of mitral valve prolapse. There is no mitral valve stenosis. Doppler and Color-flow revealed mild mitral regurgitation. TRICUSPID VALVE Doppler and Color Flow revealed no tricuspid valve regurgitation noted. There is no tricuspid valve p rolapse or vegetation. There is no tricuspid valve stenosis. PULMONIC VALVE The pulmonic valve is not well visualized. GREAT VESSELS The aortic root is normal in size. The ascending aorta is normal in size. The IVC was not visualized. PERICARDIAL EFFUSION There is no evidence of significant pericardial effusion. Critical Notification Critical Value: No <Conclusion> The ejection fraction is severely impaired. The Ejection Fraction is 20-25%. The Left Ventricle is moderately dilated. There is global hypokinesis of the left ventricle. Technically very difficult study. Signed by : Fam Landrum, Electronically Approved : 01/08/2019 14:36:48
--- NOTE | 2019-01-08 15:54 | PN ---
DATE: 01/08/2019 SUBJECTIVE: The patient is resting, slightly propped up in bed, in no apparent distress. He denied any complaint, in particular denied any chest pain or shortness of breath; however, nursing staff are concerned that his blood pressure is extremely high. PHYSICAL EXAMINATION: GENERAL: When I examined him, he looked well and was clearly in no apparent distress. No pallor, jaundice, cyanosis, or thyromegaly. No jugular venous distention. Mild bilateral lower limb edema. VITAL SIGNS: His heart rate was 105, blood pressure was 123/66, temperature was 98, respiratory rate was 37 and oxygen saturation was 99% on 3 liters of oxygen. HEAD, EYES, EARS, NOSE AND THROAT: Showed normocephalic, atraumatic. NECK: Supple. HEART: Showed normal first and second heart sounds with no gallop, rub or murmur. CHEST: Clear to auscultation. No crepitation or rhonchi. ABDOMEN: Distended, soft, nontender. No guarding or rigidity. No organomegaly. All hernial orifice intact. Bowel sounds normal. NEUROLOGIC: He is awake, alert, responding appropriately. He moves extremities without difficulty. He walks with a walker. He has multiple sets of cardiac enzymes, so that his troponin was slightly elevated from . LABORATORY DATA: There is no lab works available today. ASSESSMENT: 1. New onset atrial fibrillation with rapid ventricular response. 2. Questionable healthcare-associated pneumonia. 3. Acute on chronic kidney injury. 4. Chronic obstructive pulmonary disease. 5. Morbid obesity, obstructive sleep apnea. 6. Chronic obstructive pulmonary disease. PLAN: My plan is to repeat his lab work to see which direction his creatinine is going. Meanwhile, continue with his Cardizem drip and add hydralazine if the blood pressure continues to be extremely high. LUCIANO LAND MD DR: JUANITA/tico JOB#: [id number] / [id number]
[2019-01-08] MEDS: MELATONIN 3 MG TABLET PO SCH (19:58)
[2019-01-08] MEDS: ATORVASTATIN CALCIUM 20 MG TABLET PO SCH (19:58)
[2019-01-08] MEDS: traZODone 50 MG TABLET. PO SCH (19:58)
[2019-01-08 23:01] LABS: VANC TR 17.7 mcg/mL (10.0-20.0)
[2019-01-08] MEDS: VANCOMYCIN PER PHARMACY MC PRN (23:34)
[2019-01-08] MEDS: VANCOMYCIN 1.75 GM in IV NORMAL SALINE 500ML 500 ML IV SCH (23:47)
[2019-01-09] VITALS (22 sets, daily range): BP systolic 100–162; BP diastolic 60–86
[2019-01-09] MEDS: LORazepam 0.5 MG TABLET PO PRN ×3 (00:16→18:39)
[2019-01-09] MEDS: dilTIAZem VIAL 125 MG in IV DEXTROSE 5% 100 ML IV PRN ×2 (03:15→12:18)
[2019-01-09] MEDS: IPRATRPIUM/ALBUTEROL 0.5/2.5MG 3 ML NEBU. NEB SCH ×4 (04:54→20:05)
[2019-01-09] MEDS: LEVOTHYROXINE 50 MCG TABLET PO SCH (04:55)
[2019-01-09] MEDS: BUDESONIDE 0.5 MG/2 ML NEBU NEB SCH ×2 (04:55→20:05)
[2019-01-09 07:19] LABS: HEMATOCRIT 40.6 % (39.0-53.0); RED BLOOD COUNT 4.21 x10^6/uL (4.30-5.70)
[2019-01-09 07:25] LABS: ALBUMIN 2.8 g/dL (3.4-5.0); ALBUMIN/GLOBULIN RATIO 0.9 (1.0-1.7); CALCIUM 8.1 mg/dL (8.5-10.1); CREATININE 2.2 mg/dL (0.7-1.3); GFR 29.3; POTASSIUM 3.8 mmol/L (3.5-5.1); TOTAL PROTEIN 5.8 g/dL (6.4-8.2)
[2019-01-09] MEDS: glipiZIDE 5 MG TABLET PO SCH ×2 (07:28→16:38)
[2019-01-09] MEDS: SENNOSIDES/DOCUSATE 8.6/50MG TABLET. PO PRN (07:28)
[2019-01-09] MEDS: FOLIC ACID 1 MG TABLET PO SCH (08:45)
[2019-01-09] MEDS: FUROSEMIDE 20 MG TABLET PO SCH (08:45)
[2019-01-09] MEDS: LACTOBACILLUS RHAMNOSUS GG 1 CAPSULE. PO SCH ×2 (08:45→21:20)
[2019-01-09] MEDS: busPIRone 10 MG TABLET. PO SCH ×2 (08:45→21:20)
[2019-01-09] MEDS: APIXABAN 2.5 MG TABLET PO SCH (08:45)
[2019-01-09] MEDS: PANTOPRAZOLE 40 MG TABLET. PO SCH (08:45)
[2019-01-09] MEDS: CHOLECALCIFEROL (VITAMIN D3) 1,000 UNIT TABLET PO SCH (08:45)
[2019-01-09] MEDS: DULoxetine HCL 60 MG CAPSULE.DR PO SCH (08:45)
[2019-01-09] MEDS: FLUTICASONE 50MCG/NASAL SPRAY 16GM BOTTLE. NS SCH (08:47)
[2019-01-09] MEDS: INSULIN LISPRO 300 UNITS/3 ML INSULN.PEN. SQ SCH ×3 (08:48→17:00)
[2019-01-09] MEDS: NYSTATIN TOPICAL POWDER 15GM BOTTLE. TP SCH ×2 (09:00→21:00)
[2019-01-09] MEDS: MEROPENEM 1 GM in IV NORMAL SALINE 100ML 100 ML IV SCH ×2 (11:27→21:21)
--- NOTE | 2019-01-09 12:58 | PDOC ---
PROVIDER NOTE PROVIDER NOTE PROVIDER NOTE S: No significant improvement since admission. Continues to struggle with dyspnea/ LE edema. O: VS: HR 80's, BP 140/80's. Fluid balance - even since admission Severe anasarca. Bilateral rhonchi/rales. Irregular heart tones. Labs reviewed: Cr 2.2 Hgb/plts stable CXR: Worsening HF Impression: 1. Acute on chronic systolic and diastolic HF - EF 25% - likely related to CAD and other chronic comorbidities 2. HTN 3. Hx of P.E RECS 1. Start metoprolol 50mg p.o q 6 hours due to severe CMP and would like to stop diltiazem, wean diltiazem as tolerated. 2. Start Lasix 80mg IVP, may need to repeat. Goal net negative 1.5 L by tomorrow a.m. 3. Continue anticoagulation. YAMILEX OLIVA MD Jan 09, 2019 12:58
[2019-01-09] MEDS: FUROSEMIDE 40 MG/4 ML VIAL IVP SCH (13:17)
[2019-01-09] MEDS: METOPROLOL TART IMMED RELEASE 50 MG TABLET PO SCH ×2 (13:17→18:35)
[2019-01-09] MEDS: ACETAMINOPHEN 500 MG TABLET PO PRN (16:38)
[2019-01-09] MEDS ORDERED: APIXABAN 2.5 MG TABLET PO SCH (21:00)
[2019-01-09] MEDS: MELATONIN 3 MG TABLET PO SCH (21:20)
[2019-01-09] MEDS: traZODone 50 MG TABLET. PO SCH (21:20)
[2019-01-09] MEDS: ATORVASTATIN CALCIUM 20 MG TABLET PO SCH (21:20)
[2019-01-10] VITALS (9 sets, daily range): BP systolic 98–126; BP diastolic 61–69
--- NOTE | 2019-01-10 00:17 | PN ---
DATE: 01/09/2019 SUBJECTIVE: The patient continued to complain of shortness of breath and his echocardiogram showed that ejection fraction is severely impaired, ejection fraction is 20-25%. His left ventricle is moderately dilated. There is global hypokinesis of the left ventricle, technically very difficult study. He was seen by Dr. Landrum, who added 80 mg of Lasix. PHYSICAL EXAMINATION: GENERAL: When I examined him this afternoon, he was resting slightly propped up in bed, clearly tachypneic, but there is no pallor, jaundice, cyanosis or thyromegaly. No jugular venous distention, but generalized anasarca. VITAL SIGNS: His heart rate was 94, blood pressure was 123/75, temperature was 98.1, respiratory rate was 28 and oxygen saturation was 96% on 3 liters of oxygen. HEAD, EYES, EARS, NOSE AND THROAT: Showed normocephalic, atraumatic. NECK: Supple. HEART: Showed normal first and second heart sounds. No gallop, rub or murmur. CHEST: Clear to auscultation. Bilateral basal crepitation and scattered rhonchi. ABDOMEN: Distended, soft, nontender. NEUROLOGIC: He is awake, alert, responding appropriately. All cranial nerves are intact. He moves extremities without difficulty. His intake is 1100, output was 1100. LABORATORY DATA: This morning showed a white cell count of 8000, hemoglobin 13, hematocrit 40, MCV was 96, and platelet count of 102,000. His chemistry showed a serum sodium 142, potassium 3.8, chloride 101, bicarbonate 36, anion gap of 5, BUN 35, creatinine was 2.2, estimated GFR was 29 mL per minute, his glucose 163, calcium was 8.1. Total bilirubin, AST, ALT, alkaline phosphatase were normal. Total protein was 5.8, albumin was 2.8. His prothrombin time was 10.8, INR 1.1, aPTT was 24. Urinalysis was unremarkable. Toxic screen showed his vancomycin trough level was within acceptable range. So far, his blood cultures are negative. ASSESSMENT: 1. New onset atrial fibrillation with rapid ventricular response, rate much better controlled. He is anticoagulated. 2. Questionable healthcare-associated pneumonia for which he is on IV Zosyn and vancomycin. The blood cultures are negative after 2 days, we will discontinue the vancomycin. 3. Acute on chronic kidney injury, improving. His creatinine came down to 2.2. 4. Chronic obstructive pulmonary disease. 5. Morbid obesity, obstructive sleep apnea. 6. Acute on chronic systolic congestive heart failure. His echocardiogram showed that his ejection fraction is severely impaired and down to 15-20% with global hypokinesis. Apparently, he was given 80 mg of Lasix. PLAN: To transfer him to [facility] for right heart catheterization if there is no improvement in symptoms. LUCIANO LAND MD DR: JUANITA/tico JOB#: [id number] / [id number]
[2019-01-10 03:41] LABS: BASO % 0 % (0-3); EOS # 0.2 x10^3/uL (0.0-0.7); EOS % 3 % (0-3); HEMATOCRIT 41.7 % (39.0-53.0); HEMOGLOBIN 13.4 g/dL (13.0-17.5); LYMPH # 0.9 x10^3/uL (1.0-4.8); LYMPH % 11 % (24-48); MEAN CORPUSCULAR HEMOGLOBIN 31 pg (25-35); MEAN CORPUSCULAR HGB CONC 32 g/dL (31-37); MEAN CORPUSCULAR VOLUME 97 fL (79-100); MONO # 0.5 x10^3/uL (0.0-1.1); MONO % 6 % (0-9); NEUT # 6.9 x10^3uL (1.8-7.7); NEUT % 80 % (31-73); PLATELET COUNT 93 x10^3/uL (140-400); RED BLOOD COUNT 4.32 x10^6/uL (4.30-5.70); RED CELL DISTRIBUTION WIDTH 14.8 % (11.5-14.5); WHITE BLOOD COUNT 8.6 x10^3/uL (4.0-11.0)
[2019-01-10 04:00] LABS: BGAS PH 7.28 (7.35-7.46)
[2019-01-10] MEDS: IPRATRPIUM/ALBUTEROL 0.5/2.5MG 3 ML NEBU. NEB SCH (04:05)
[2019-01-10 04:09] LABS: ALBUMIN 2.8 g/dL (3.4-5.0); ALBUMIN/GLOBULIN RATIO 0.9 (1.0-1.7); CALCIUM 8.6 mg/dL (8.5-10.1); CREATININE 2.6 mg/dL (0.7-1.3); GFR 24.2; POTASSIUM 4.3 mmol/L (3.5-5.1); TOTAL BILIRUBIN 0.9 mg/dL (0.2-1.0); TOTAL PROTEIN 5.9 g/dL (6.4-8.2)
--- NOTE | 2019-01-10 05:26 | RAD ---
INDICATION: copd, chf, shortness of breath
COMPARISON: January 08, 2019 FINDINGS: Single view chest obtained. Cardiomediastinal contour is enlarged. Interstitial opacities bilaterally. More focal opacity at right greater than left lung base with suspected pleural effusions. Old left-sided rib fractures. IMPRESSION: 1. Enlarged cardiac mediastinal silhouette could be from cardiomegaly and/or pericardial effusion. 2. Interstitial opacities bilaterally which can be seen with edema. 3. Focal opacity at the right greater than left lung base which could be secondary to pleural effusion with adjacent atelectasis or infiltrate. Electronically signed by: Beck Santana MD (01/10/2019 5:23 AM) [facility]
[2019-01-10] MEDS: METOPROLOL TART IMMED RELEASE 50 MG TABLET PO SCH ×2 (06:22)
[2019-01-10] MEDS: LEVOTHYROXINE 50 MCG TABLET PO SCH (06:22)
[2019-01-10] MEDS: glipiZIDE 5 MG TABLET PO SCH (07:30)
[2019-01-10] MEDS: BUDESONIDE 0.5 MG/2 ML NEBU NEB SCH (08:00)
[2019-01-10] MEDS: INSULIN LISPRO 300 UNITS/3 ML INSULN.PEN. SQ SCH (08:00)
[2019-01-10 08:43] LABS: BGAS PH 7.31 (7.35-7.46)
[2019-01-10] MEDS: FLUTICASONE 50MCG/NASAL SPRAY 16GM BOTTLE. NS SCH (08:53)
[2019-01-10] MEDS: busPIRone 10 MG TABLET. PO SCH (08:58)
[2019-01-10] MEDS: DULoxetine HCL 60 MG CAPSULE.DR PO SCH (08:58)
[2019-01-10] MEDS: PANTOPRAZOLE 40 MG TABLET. PO SCH (08:58)
[2019-01-10] MEDS: FOLIC ACID 1 MG TABLET PO SCH (08:58)
[2019-01-10] MEDS: LACTOBACILLUS RHAMNOSUS GG 1 CAPSULE. PO SCH (08:58)
[2019-01-10] MEDS: NYSTATIN TOPICAL POWDER 15GM BOTTLE. TP SCH (08:59)
[2019-01-10] MEDS: CHOLECALCIFEROL (VITAMIN D3) 1,000 UNIT TABLET PO SCH (08:59)
[2019-01-10] MEDS: CALCITRIOL 0.25 MCG CAPSULE PO SCH (09:00)
[2019-01-10] MEDS: FUROSEMIDE 40 MG/4 ML VIAL IVP SCH (09:07)
--- NOTE | 2019-01-10 09:22 | PDOC ---
PROGRESS NOTES Diagnosis Problem Problems Medical Problems: (1) Atrial fibrillation with RVR Status: Acute (2) CHF (congestive heart failure) Status: Acute (3) COPD (chronic obstructive pulmonary disease) Status: Acute Assessment Problems Medical Problems: (1) Atrial fibrillation with RVR Status: Acute (2) CHF (congestive heart failure) Status: Acute (3) COPD (chronic obstructive pulmonary disease) Status: Acute Assessment/Plan 1. acute on chronic hypercapnic, hypoxic respiratory failure - multifactorial, remains hypoxic and hypercapnic. poss HCAP - on abx, per PCP COPD exacerbation - per PCP, currently requiring BiPap acute on chronic systolic HF, EF 20% - cont lasix. will need renal consult on transfer. 2. atrial fibrillation with rvr - rate controlled. 3. CAD with prior VT - requested records, pending. 4. Hypertension - controlled on current therapy. 5. Acute on chronic kidney disease - (baseline Cr in 09.26) currently @ 2.6, suggest renal eval. 6. Hx of recurrent PE/DVT 7. diabetes mellitus 8. hyperlipidemia Transferring to [facility] for tertiary care. Patient has requested DNI, reviewed request with him and he again affirmed he does not want intubation but does want compressions, drugs if required. Subjective decline in condition overnight. currently on BiPap Objective CXR - IMPRESSION: 1. Enlarged cardiac mediastinal silhouette could be from cardiomegaly and/or pericardial effusion. 2. Interstitial opacities bilaterally which can be seen with edema. 3. Focal opacity at the right greater than left lung base which could be secondary to pleural effusion with adjacent atelectasis or infiltrate. tele - atrial fibrillation 70s- 90s Vital Signs Date Time Temp Pulse Resp B/P (MAP) Pulse Ox O2 Delivery O2 Flow Rate FiO2 01/10/19 06:22 83 123/69 01/10/19 05:50 96 Nasal Cannula 3.0 01/10/19 04:50 24 01/09/19 20:00 98.0 Intake and Output 01/10/19 06:59 Intake Total 520 ml Output Total 625 ml Balance -105 ml Intake Oral 420 ml IV Total 100 ml Output Urine Total 625 ml # Voids 1 Physical Exam gen: lethargic, wakens and nods appropriately. On BiPap CV: IRR, no gallops, clicks or rubs Lungs: crackles left base, right decreased throughout abd: soft, +bowel sounds. ext: lower with trace edema. right upper ext significant edema, left trace. Review of Relevant I have reviewed the following items akil (where applicable) has been applied. Labs Laboratory Tests Test 01/08/19 10:06 01/08/19 12:14 01/08/19 17:25 01/08/19 20:01 White Blood Count 9.5 x10^3/uL (4.0-11.0) Red Blood Count 4.29 x10^6/uL (4.30-5.70) Hemoglobin 13.4 g/dL (13.0-17.5) Hematocrit 41.3 % (39.0-53.0) Mean Corpuscular Volume 96 fL (79-100) Mean Corpuscular Hemoglobin 31 pg (25-35) Mean Corpuscular Hemoglobin Concent 32 g/dL (31-37) Red Cell Distribution Width 14.5 % (11.5-14.5) Platelet Count 111 x10^3/uL (140-400) Sodium Level 143 mmol/L (136-145) Potassium Level 4.2 mmol/L (3.5-5.1) Chloride Level 101 mmol/L (98-107) Carbon Dioxide Level 39 mmol/L (21-32) Anion Gap 3 (6-14) Blood Urea Nitrogen 43 mg/dL (8-26) Creatinine 2.4 mg/dL (0.7-1.3) Estimated GFR (Cockcroft-Gault) 26.5 Glucose Level 207 mg/dL (70-99) Calcium Level 8.2 mg/dL (8.5-10.1) Procalcitonin 0.15 ng/mL (0.00-0.10) Glucose (Fingerstick) 191 mg/dL (70-99) 157 mg/dL (70-99) 158 mg/dL (70-99) Test 01/08/19 22:15 01/09/19 06:13 01/10/19 03:30 01/10/19 03:40 Vancomycin Level Trough 17.7 mcg/mL (10.0-20.0) Vancomycin Last Dose Date 01/07/19 Vancomycin Last Dose Time 2300 White Blood Count 8.0 x10^3/uL (4.0-11.0) 8.6 x10^3/uL (4.0-11.0) Red Blood Count 4.21 x10^6/uL (4.30-5.70) 4.32 x10^6/uL (4.30-5.70) Hemoglobin 13.0 g/dL (13.0-17.5) 13.4 g/dL (13.0-17.5) Hematocrit 40.6 % (39.0-53.0) 41.7 % (39.0-53.0) Mean Corpuscular Volume 96 fL (79-100) 97 fL (79-100) Mean Corpuscular Hemoglobin 31 pg (25-35) 31 pg (25-35) Mean Corpuscular Hemoglobin Concent 32 g/dL (31-37) 32 g/dL (31-37) Red Cell Distribution Width 15.0 % (11.5-14.5) 14.8 % (11.5-14.5) Platelet Count 102 x10^3/uL (140-400) 93 x10^3/uL (140-400) Sodium Level 142 mmol/L (136-145) 141 mmol/L (136-145) Potassium Level 3.8 mmol/L (3.5-5.1) 4.3 mmol/L (3.5-5.1) Chloride Level 101 mmol/L (98-107) 101 mmol/L (98-107) Carbon Dioxide Level 36 mmol/L (21-32) 39 mmol/L (21-32) Anion Gap 5 (6-14) 1 (6-14) Blood Urea Nitrogen 35 mg/dL (8-26) 41 mg/dL (8-26) Creatinine 2.2 mg/dL (0.7-1.3) 2.6 mg/dL (0.7-1.3) Estimated GFR (Cockcroft-Gault) 29.3 24.2 BUN/Creatinine Ratio 16 (6-20) 16 (6-20) Glucose Level 163 mg/dL (70-99) 139 mg/dL (70-99) Calcium Level 8.1 mg/dL (8.5-10.1) 8.6 mg/dL (8.5-10.1) Total Bilirubin 1.0 mg/dL (0.2-1.0) 0.9 mg/dL (0.2-1.0) Aspartate Amino Transf (AST/SGOT) 15 U/L (15-37) 16 U/L (15-37) Alanine Aminotransferase (ALT/SGPT) 19 U/L (16-63) 18 U/L (16-63) Alkaline Phosphatase 47 U/L (46-116) 48 U/L (46-116) Total Protein 5.8 g/dL (6.4-8.2) 5.9 g/dL (6.4-8.2) Albumin 2.8 g/dL (3.4-5.0) 2.8 g/dL (3.4-5.0) Albumin/Globulin Ratio 0.9 (1.0-1.7) 0.9 (1.0-1.7) Neutrophils (%) (Auto) 80 % (31-73) Lymphocytes (%) (Auto) 11 % (24-48) Monocytes (%) (Auto) 6 % (0-9) Eosinophils (%) (Auto) 3 % (0-3) Basophils (%) (Auto) 0 % (0-3) Neutrophils # (Auto) 6.9 x10^3uL (1.8-7.7) Lymphocytes # (Auto) 0.9 x10^3/uL (1.0-4.8) Monocytes # (Auto) 0.5 x10^3/uL (0.0-1.1) Eosinophils # (Auto) 0.2 x10^3/uL (0.0-0.7) Basophils # (Auto) 0.0 x10^3/uL (0.0-0.2) Blood Gas pH 7.28 (7.35-7.46) Blood Gas PCO2 80 mmHg (35-46) Blood Gas PO2 42 mmHg (71-100) Blood Gas HCO3 38 mmol/L (21-28) Arterial Bld O2 Saturation (Calc) 69 % (92-99) FiO2 32 % Test 01/10/19 08:25 Blood Gas pH 7.31 (7.35-7.46) Blood Gas PCO2 69 mmHg (35-46) Blood Gas PO2 57 mmHg (71-100) Blood Gas HCO3 35 mmol/L (21-28) Arterial Bld O2 Saturation (Calc) 86 % (92-99) FiO2 35 % Microbiology 01/06/19 Blood Culture - Preliminary, Resulted NO GROWTH AFTER 3 DAYS... Medications Current Medications Albuterol/ Ipratropium (Duoneb) 3 ml 1X ONCE NEB Last administered on at 17:04; Start 01/06/19 at 17:30; Stop 01/06/19 at 17:31; Status DC Furosemide (Lasix) 40 mg 1X ONCE IVP Last administered on 01/06/19at 17:19; Start 01/06/19 at 17:30; Stop 01/06/19 at 17:31; Status DC Aspirin (Children'S Aspirin) 324 mg 1X ONCE PO Last administered on 01/06/19at 17:04; Start 01/06/19 at 17:30; Stop 01/06/19 at 17:31; Status DC Diltiazem HCl (Cardizem Iv Push) 20 mg 1X ONCE IVP Last administered on at 17:21; Start 01/06/19 at 17:15; Stop 01/06/19 at 17:16; Status DC Diltiazem HCl 125 mg/Dextrose 125 ml @ 10 mls/hr 1X ONCE IV Last administered on 01/06/19at 17:27; Start 01/06/19 at 17:30; Stop 01/07/19 at 06:00 ; Status DC Buspirone HCl (Buspar) 10 mg 1X ONCE PO Last administered on 01/06/19at 17:48; Start 01/06/19 at 17:45; Stop 01/06/19 at 17:46; Status DC Ondansetron HCl (Zofran) 4 mg PRN Q4HRS PRN IV NAUSEA/VOMITING; Start 01/06/19 at 18:30; Stop 01/07/19 at 18:29; Status DC Morphine Sulfate (Morphine 2mg Syringe) 2 mg PRN Q2HR PRN IV PAIN; Start at 18:30; Stop 01/06/19 at 18:33; Status DC Morphine Sulfate (Morphine 4mg Syringe) 2 mg PRN Q2HR PRN IV PAIN; Start at 18:33; Stop 01/07/19 at 18:29; Status DC Apixaban (Eliquis) 2.5 mg BID PO Last administered on 01/09/19at 08:45; Start at 22:00; Stop 01/09/19 at 14:53; Status DC Furosemide (Lasix) 60 mg DAILY PO Last administered on 01/09/19 08:45; Start 01/07/19 at 09:00; Stop 01/09/19 at 19:15; Status DC Guaifenesin (Guaifenesin) 200 mg PRN TID PRN PO COUGH Last administered on 01/09 07:29; Start 01/06/19 at 21:30 Nystatin (Nystop) 1 sirena BID TP Last administered on 01/09/19 21:00; Start at 22:00 Senna/Docusate Sodium (Senna Plus) 2 tab PRN BID PRN PO CONSTIPATION Last administered on 01/09/19 07:28; Start 01/06/19 at 21:30 Atorvastatin Calcium (Lipitor) 40 mg QHS PO Last administered on 01/09/19 21: 20; Start 01/06/19 at 22:00 Non-Formulary Medication (Budesonide/ Formoterol Fumarate (Symbicort 160-4.5 Mcg Inhaler)) 2 puff BID IH ; Start 01/07/19 at 09:00; Status UNV Buspirone HCl (Buspar) 10 mg BID PO Last administered on 01/09/19 21:20; Start 01/06/19 at 22:00 Calcitriol (Rocaltrol) 0.25 mcg 3X/WEEK PO Last administered on 01/07/19 08:07 ; Start 01/07/19 at 09:00 Vitamin D (Vitamin D3) 2,000 unit DAILY PO Last administered on 01/09/19 08:45 ; Start 01/07/19 at 09:00 Duloxetine HCl (Cymbalta) 60 mg DAILY PO Last administered on 01/09/19 08:45; Start 01/07/19 at 09:00 Fluticasone Propionate (Flonase) 2 spray DAILY NS Last administered on 08:47; Start 01/07/19 at 09:00 Folic Acid (Folic Acid) 1 mg DAILY PO Last administered on 01/09/19 08:45; Start 01/07/19 at 09:00 Glipizide (Glucotrol) 2.5 mg BIDBFRMEAL PO Last administered on 4/21/19at 16:38 ; Start 01/07/19 at 07:30 Lactobacillus Rhamnosus (Culturelle) 1 cap BID PO Last administered on 21:20; Start 01/07/19 at 09:00 Levothyroxine Sodium (Synthroid) 50 mcg DAILY06 PO Last administered on 06:22; Start 01/07/19 at 06:00 Melatonin 3 mg HS PO Last administered on 01/09/19 21:20; Start 01/06/19 at 22 :00 Pantoprazole Sodium (Protonix) 40 mg DAILY PO Last administered on 01/09/19 08 :45; Start 01/07/19 at 09:00 Non-Formulary Medication (Tiotropium [place] (Spiriva)) 18 mcg DAILY IH ; Start 01/07/19 at 09:00; Status UNV Trazodone HCl (Desyrel) 50 mg HS PO Last administered on 01/09/19 21:20; Start 01/06/19 at 22:00 Albuterol/ Ipratropium (Duoneb) 3 ml RTQID NEB Last administered on 01/10/19 04:05; Start 01/07/19 at 08:00 Insulin Human Lispro (HumaLOG) 0-5 UNITS TIDWMEALS SQ Last administered on 01/09at 13:32; Start 01/07/19 at 08:00 Dextrose (Dextrose 50%-Water Syringe) 12.5 gm PRN Q15MIN PRN IV SEE COMMENTS; Start 01/06/19 at 21:45 Dextrose (Dextrose 50%-Water Syringe) 12.5 gm PRN Q15MIN PRN IV SEE COMMENTS; Start 01/06/19 at 21:45; Status UNV Vancomycin HCl (Vanco Per Pharmacy) 1 each PRN DAILY PRN MC SEE COMMENTS Last administered on 01/08/19at 23:34; Start 01/06/19 at 21:45 Albuterol/ Ipratropium (Duoneb) 3 ml RTQID NEB ; Start 01/07/19 at 08:00; Status UNV Budesonide (Pulmicort) 0.5 mg RTBID NEB Last administered on 01/09/19at 20:05; Start 01/07/19 at 08:00 Meropenem 1 gm/ Sodium Chloride 100 ml @ 200 mls/hr Q12H IV Last administered on 01/09/19 21:21; Start 01/06/19 at 22:00 Vancomycin HCl 2 gm/Sodium Chloride 500 ml @ 250 mls/hr 1X ONCE IV Last administered on 01/06/19 23:30; Start 01/06/19 at 23:00; Stop 01/07/19 at 01:00 ; Status DC Vancomycin HCl 1.75 gm/Sodium Chloride 500 ml @ 250 mls/hr Q24H IV Last administered on 01/08/19 23:47; Start 01/07/19 at 23:00; Stop 01/09/19 at 14:53 ; Status DC Vancomycin HCl (Vancomycin Trough Level) 1 each 1X ONCE MC Last administered on 01/08/19 22:30; Start 01/08/19 at 22:30; Stop 01/08/19 at 22:31; Status DC Diltiazem HCl 125 mg/Dextrose 125 ml @ 5 mls/hr CONT PRN IV SEE I/O RECORD Last administered on 01/09/19 12:18; Start 01/06/19 at 22:30 Digoxin (Lanoxin) 500 mcg 1X ONCE IV Last administered on 01/06/19 22:45; Start 01/06/19 at 22:44; Stop 01/06/19 at 22:45; Status DC Acetaminophen (Tylenol) 1,000 mg PRN Q6HRS PRN PO PAIN / TEMP Last administered on 01/09/19at 16:38; Start 01/07/19 at 01:00 Albuterol/ Ipratropium (Duoneb) 3 ml STK-MED ONCE .ROUTE ; Start 01/07/19 at 05: 18; Stop 01/07/19 at 05:19; Status DC Furosemide (Lasix) 40 mg 1X ONCE IVP Last administered on 01/07/19 20:23; Start 01/07/19 at 20:00; Stop 01/07/19 at 20:01; Status DC Lorazepam (Ativan) 0.5 mg PRN Q4HRS PRN PO ANXIETY / AGITATION Last administered on 01/09/19at 18:39; Start 01/09/19 at 00:00 Metoprolol Tartrate (Lopressor) 50 mg Q6HRS PO Last administered on 01/10/19at 06:22; Start 01/09/19 at 13:00 Furosemide (Lasix) 80 mg DAILY IVP Last administered on 01/09/19at 13:17; Start 01/09/19 at 13:15 Apixaban (Eliquis) 5 mg BID PO Last administered on 01/09/19at 21:20; Start at 21:00 Active Scripts Active Reported Melatonin 3 Mg Tablet 3 Mg PO HS Acidophilus (Lactobacillus Acidophilus) 1 Each Capsule 1 Each PO BID Levofloxacin 750 Mg Tablet 750 Mg PO DAILY 8 Days Klor-Con M20 (Potassium Chloride) 20 Meq Tab.er.prt 20 Meq PO DAILY Glipizide 5 Mg Tablet 2.5 Mg PO BID Symbicort 160-4.5 Mcg Inhaler (Budesonide/Formoterol Fumarate) 10.2 Gm Hfa.aer.ad 2 Puff IH BID Fluticasone Propionate Nasal [place] (Fluticasone Propionate) 16 Gm [place].susp 2 Spr NS DAILY Eliquis (Apixaban) 2.5 Mg Tablet 2.5 Mg PO BID Albuterol Sulfate Neb Soln (Albuterol Sulfate) 2.5 Mg/3 Ml Vial.neb 2.5 Mg NEB QID Nystatin 15 Gm Powder 1 Sirena TP BID Buspirone Hcl 10 Mg Tablet 1 Tab PO BID Trazodone Hcl 50 Mg Tablet 1 Tab PO QHS Cymbalta (Duloxetine Hcl) 60 Mg Capsule.dr 1 Cap PO DAILY Furosemide 20 Mg Tablet 60 Mg PO DAILY Protonix (Pantoprazole Sodium) 40 Mg Tablet.dr 20 Mg PO DAILY Senna Plus Tablet (Sennosides/Docusate Sodium) 1 Each Tablet 2 Each PO PRN BID PRN Spiriva (Tiotropium [place]) 18 Mcg Cap.w.dev 18 Mcg IH DAILY Last Dose: Not given in hospital Next Dose: Resume at home Indication: COPD Lipitor (Atorvastatin Calcium) 40 Mg Tablet 40 Mg PO QHS Last Dose: 09-10-14 at 9:00 PM Next Dose: Tonight at 9:00 PM Indication: Cholesterol Folic Acid 1 Mg Tablet 1 Mg PO DAILY Last Dose: Today at 0900 Next Dose: Tomorrow at 0900 Indication: Supplement Tylenol (Acetaminophen) 325 Mg Tablet 1-2 Tab PO PRN Q8HRS PRN Not given in hospital Levothyroxine Sodium 50 Mcg Tablet 50 Mcg PO DAILYAC Last Dose: Today at 07 Next Dose: Tomorrow at 729 Indication: Thyroid Coughtab (Guaifenesin) 200 Mg Tablet 200 Mg PO PRN TID PRN Last Dose: Not given in hospital Next Dose: Resume at home as needed Indication: Vitamin D (Cholecalciferol (Vitamin D3)) 2,000 Unit Capsule 2,000 Unit PO DAILY Last Dose: Today at 0900 Next Dose: Tomorrow at 899 Indication: Supplement Calcitriol 0.25 Mcg Capsule 0.25 Mcg PO 3X/WEEK Last Dose: Today at 899 Next Dose: Thursday at 0900 Indication: Calcium supplement Vitals/I & O Vital Sign - Last 24 Hours 01/09/19 01/09/19 01/09/19 01/09/19 09:00 10:00 10:27 11:00 Temp 98.1 98.1 98.1 Pulse 94 90 82 B/P (MAP) 123/75 (91) 128/70 (89) 143/80 (101) Pulse Ox 96 97 94 97 O2 Delivery Nasal Cannula Nasal Cannula Nasal Cannula Nasal Cannula O2 Flow Rate 3.0 3.0 3.0 3.0 01/09/19 01/09/19 01/09/19 01/09/19 12:00 12:00 13:00 13:17 Temp 98.1 98.1 Pulse 88 86 88 B/P (MAP) 135/73 (93) 162/83 (109) 135/73 Pulse Ox 99 96 O2 Delivery Nasal Cannula Nasal Cannula Nasal Cannula O2 Flow Rate 3.0 3.0 3.0 01/09/19 01/09/19 01/09/19 01/09/19 14:00 15:00 16:00 16:00 Temp 98.1 98.1 98.1 Pulse 76 76 62 B/P (MAP) 103/63 (76) 118/63 (81) 120/66 (84) Pulse Ox 97 97 97 O2 Delivery Nasal Cannula Nasal Cannula Nasal Cannula Nasal Cannula O2 Flow Rate 3.0 3.0 3.0 3.0 01/09/19 01/09/19 01/09/19 01/09/19 16:20 17:00 18:08 18:35 Temp 98.1 Pulse 62 62 B/P (MAP) 120/66 (84) 114/73 (87) 114/73 Pulse Ox 97 97 94 O2 Delivery Nasal Cannula Nasal Cannula Nasal Cannula O2 Flow Rate 3.0 3.0 3.0 01/09/19 01/09/19 01/09/19 01/09/19 19:00 20:00 20:00 20:08 Temp 98.0 Pulse 64 72 B/P (MAP) 113/63 (80) 118/62 (80) Pulse Ox 95 95 97 O2 Delivery Nasal Cannula Nasal Cannula Nasal Cannula Nasal Cannula O2 Flow Rate 3.0 3.0 3.0 3.0 01/09/19 01/09/19 01/09/19 01/09/19 20:10 21:00 22:00 23:00 Pulse 64 64 62 B/P (MAP) 108/60 (76) 100/61 (74) 108/69 (82) Pulse Ox 97 98 95 94 O2 Delivery Nasal Cannula Nasal Cannula Nasal Cannula Nasal Cannula O2 Flow Rate 3.0 3.0 3.0 3.0 01/10/19 01/10/19 01/10/19 01/10/19 00:00 00:01 00:30 01:00 Pulse 58 58 62 B/P (MAP) 98/66 (77) 118/66 (83) Pulse Ox 97 97 O2 Delivery Nasal Cannula Nasal Cannula Nasal Cannula O2 Flow Rate 3.0 3.0 3.0 01/10/19 01/10/19 01/10/19 01/10/19 02:00 03:00 03:50 03:50 Pulse 64 76 79 B/P (MAP) 111/68 (82) 119/64 (82) 126/61 (82) Pulse Ox 94 92 O2 Delivery Nasal Cannula Nasal Cannula Bi-pap O2 Flow Rate 3.0 3.0 01/10/19 01/10/19 01/10/19 01/10/19 04:21 04:23 04:50 05:50 Pulse 80 83 Resp 24 B/P (MAP) 120/62 (81) 123/69 (87) Pulse Ox 78 93 95 96 O2 Delivery Nasal Cannula BiPAP/CPAP BiPAP/CPAP Nasal Cannula O2 Flow Rate 3.0 3.0 01/10/19 06:22 Pulse 83 B/P (MAP) 123/69 Intake and Output 01/09/19 01/09/19 01/10/19 14:59 22:59 06:59 Intake Total 300 ml 100 ml 120 ml Output Total 425 ml 200 ml Balance -125 ml -100 ml 120 ml JACOB CHAPPELL [employer] Jan 10, 2019 09:22
--- NOTE | 2019-02-10 20:01 | DS ---
DATE OF DISCHARGE: 01/10/2019 HISTORY OF PRESENT ILLNESS: The patient is a 73-year-old male patient, who was admitted to [facility] as he was a resident at [facility] and was brought to the Emergency Room with a complaint of shortness of breath that has been getting worse over the past several days. It became much more worse when he was physical therapy rehabilitation. Both lower extremities are markedly swollen compared with his usual baseline; however, he denied any chest pain. His heart rate was noted to be fast and he has a feeling of palpitation for the past week according to him, but denied any nausea, vomiting, no diaphoresis and no cough or phlegm. He was evaluated in the Emergency Room, was found to have a new onset of atrial fibrillation, rapid ventricular response and also developed acute on chronic systolic congestive heart failure as well as chronic obstructive pulmonary disease. He was given Cardizem bolus and Cardizem drip, had 2 sets of cardiac enzymes that were negative for myocardial infarction. He was treated also with IV Lasix; however, his symptoms have not really improved and therefore a decision was made to transfer him to [facility] with a plan to do right heart catheterization as recommended by the traffic assistant. PHYSICAL EXAMINATION: GENERAL: When I saw him on the day of discharge, he was resting, slightly propped up in bed, continued to be markedly tachypneic, requiring BiPAP machine. He was pale, but no jaundice, cyanosis, or thyromegaly. No jugular venous distension. He has marked bilateral lower limb edema. VITAL SIGNS: His heart rate was 92, blood pressure 113/66, temperature was 97.2, respiratory rate was 31 and oxygen saturation was 93%. HEAD, EYES, EARS, NOSE AND THROAT: Showed normocephalic, atraumatic. NECK: Supple. HEART: Showed normal first and second heart sounds. No gallop, rub or murmur. CHEST: Showed central trachea, equally reduced expansion, reduced air entry, vesicular sounds with bilateral basal crepitation posteriorly, very few scattered rhonchi. ABDOMEN: Markedly distended, soft, nontender. NEUROLOGIC: He was awake, alert, responding appropriately. All cranial nerves intact. He moves extremities without difficulty; however, he is mostly bedbound, chair bound. His intake was 2200, output was 1375. LABORATORY DATA: Showed a white cell count of 8600, hemoglobin 13, hematocrit 41, MCV 97 and platelet count of 93,000. His chemistry showed a serum sodium 141, potassium 4.3, chloride 101, bicarbonate 39, anion gap of 1, BUN 41, creatinine was 2.5, estimated GFR was 24 mL per minute, his glucose 139, calcium was 8.6. Total bilirubin, AST, ALT, alkaline phosphatase were normal. His total protein was 5.9, albumin was 2.8. His blood gases showed that he is acidotic with a pH of 7.31, pCO2 of 69, pO2 of 57, bicarbonate was 35 and oxygen saturation was 86% on FiO2 of 35%. His prothrombin time was 10.8, INR of 1.1, aPTT was 24. His nasal screen for MRSA by PCR was negative. Urinalysis was unremarkable and toxic screen showed the vancomycin was well within therapeutic range. He was transferred to [facility] to continue on following medications. FINAL DISCHARGE DIAGNOSES: 1. New onset atrial fibrillation with rapid ventricular response, rate much better controlled. He is well anticoagulated. 2. Healthcare-associated pneumonia for which he is on IV Zosyn and vancomycin. His blood cultures are so far negative. I did discontinue his vancomycin. 3. Acute on chronic kidney injury, improving. His creatinine came down to 2.2. 4. Chronic obstructive pulmonary disease. 5. Morbid obesity, obstructive sleep apnea. 6. [id number] systolic congestive heart failure. His echocardiogram showed that the ejection fraction has severely impaired and down to 15-20% with global hypokinesis, chronic back pain due to multiple vertebral compression fracture. LUCIANO LAND MD DR: JUANITA/tico JOB#: [id number] / [id number]
== END 2019-01-10 09:50 | disposition short-term general hospital (02) | DRG 291 ==
LOC: ER 16:45 → ICU 18:26
PROVIDERS: ADMIT Internal Medicine; ATTEND Internal Medicine
PROC: 5A09357 Assistance with Respiratory Ventilation, Less than 24 Consecutive Hours, Continuous Positive Airway Pressure (ICD-10-PCS; principal; 2019-01-10)
DX: I13.0 Hypertensive heart and chronic kidney disease with heart failure and stage 1 through stage 4 chronic kidney disease, or unspecified chronic kidney disease (principal); I50.43 Acute on chronic combined systolic (congestive) and diastolic (congestive) heart failure; J96.21 Acute and chronic respiratory failure with hypoxia; J96.22 Acute and chronic respiratory failure with hypercapnia; J44.1 Chronic obstructive pulmonary disease with (acute) exacerbation; N17.9 Acute kidney failure, unspecified; E03.9 Hypothyroidism, unspecified; E11.22 Type 2 diabetes mellitus with diabetic chronic kidney disease; E66.01 Morbid (severe) obesity due to excess calories; E78.00 Pure hypercholesterolemia, unspecified; E78.5 Hyperlipidemia, unspecified; F32.9 Major depressive disorder, single episode, unspecified; F41.9 Anxiety disorder, unspecified; G89.29 Other chronic pain; G47.33 Obstructive sleep apnea (adult) (pediatric); I25.10 Atherosclerotic heart disease of native coronary artery without angina pectoris; K21.9 Gastro-esophageal reflux disease without esophagitis; N18.9 Chronic kidney disease, unspecified; N40.0 Benign prostatic hyperplasia without lower urinary tract symptoms; I48.91 Unspecified atrial fibrillation; I25.2 Old myocardial infarction; Z79.01 Long term (current) use of anticoagulants; Z87.01 Personal history of pneumonia (recurrent); Z82.49 Family history of ischemic heart disease and other diseases of the circulatory system; Z86.711 Personal history of pulmonary embolism; Z86.718 Personal history of other venous thrombosis and embolism; Z87.891 Personal history of nicotine dependence; Z98.41 Cataract extraction status, right eye; Z98.42 Cataract extraction status, left eye; Z99.81 Dependence on supplemental oxygen
CPT/HCPCS: 36415; 36600; 71045; 80048; 80053; 80202; 81001; 82803; 82947; 83605; 83735; 83880; 84145; 84443; 84484; 85025; 85027; 85610; 85730; 87040; 87641; 93005; 93306; 94640; 94660; 96365; 96375; 96376; J1160; J1815; J1940; J2185; J3370; J3490; J7040; J7620; J7626; 99285-25